=== PATIENT | female | born 1985 | race American Indian/Alaskan Native ===

== ENCOUNTER 2016-10-08 13:24 | Emergency (ER) | payer OTHER ==
[2016-10-08 16:01] LABS: Basophils % (Auto) 0.6 % (0.0-1.8); Hematocrit 32.9 % (30.3-42.9); Hemoglobin 10.2 gm/dl (10.1-14.3); Mean Corpuscular HGB Conc 31 % (30-34); Mean Corpuscular Hemoglobin 19 pg (28-32); Mean Corpuscular Volume 63 fl (79-97); Platelet Count 222 K/mm3 (140-440); Red Blood Count 5.26 M/mm3 (3.65-5.03); Red Cell Distribution Width 19.2 % (13.2-15.2); White Blood Count 5.6 K/mm3 (4.5-11.0)
[2016-10-08 16:27] LABS: Alanine Aminotransferase 12 units/L (7-56); Albumin 4.1 g/dL (3.9-5); Albumin/Globulin Ratio 1.3 %; Alkaline Phosphatase 41 units/L (35-129); Anion Gap 17 mmol/L; BUN/Creatinine Ratio 17.77; Bilirubin,Total 0.3 mg/dL (0.1-1.2); Blood Urea Nitrogen 16 mg/dL (7-17); Calcium 8.7 mg/dL (8.4-10.2); Carbon Dioxide 23 mmol/L (22-30); Chloride 101.7 mmol/L (98-107); Glucose 93 mg/dL (65-100); Lipase 32 units/L (13-60); Potassium 3.9 mmol/L (3.6-5.0); Sodium 138 mmol/L (137-145); Total Protein 7.2 g/dL (6.3-8.2)
[2016-10-08 17:06] LABS: Bilirubin,Urine NEG (Negative); Blood,Urine NEG (Negative); Ketones,Urine NEG (Negative); Leukocyte Esterase,Urine SM (Negative); Mucus,Urine FEW /HPF; Nitrite,Urine NEG (Negative); Protein,Urine <15 mg/dL mg/dL (Negative); Urobilinogen,Urine < 2.0 mg/dL (<2.0)
--- NOTE | 2016-10-08 23:25 | Emergency Department Report ---
ED Abdominal Pain HPI - General Chief Complaint: Abdominal Pain Stated Complaint: ABD PAIN Time Seen by Provider: 10/08/16 22:18 Source: patient Mode of arrival: Ambulatory Limitations: No Limitations - History of Present Illness MD Complaint: abdominal pain Onset/Timin -: Gradual, year(s) (history of umbilical hernia) Location: periumbilical Radiation: none Migration to: no migration Severity: mild Severity scale (0 -10): 3 Quality: stabbing Consistency: intermittent Improves With: nothing Worsens With: nothing Associated Symptoms: denies: nausea, vomiting, diarrhea, fever, chills, constipation, dysuria, hematemesis, hematochezia, melena, hematuria, anorexia - Related Data Previous Rx's Medication Instructions Recorded Last Taken Type Lisinopril/Hydrochlorothiazide 1 tab PO QDAY #30 tablet 08/01/15 10/08/16 Rx [Zestoretic 10-12.5 mg] Ibuprofen [Motrin 800 MG tab] 800 mg PO Q8HR PRN #30 tablet 10/08/16 Unknown Rx Allergies Allergy/AdvReac Type Severity Reaction Status Date / Time No Known Allergies Allergy Unverified 08/01/15 17:59 ED Review of Systems ROS: Stated complaint: ABD PAIN Other details as noted in HPI Constitutional: denies: chills, fever Eyes: denies: eye pain, eye discharge, vision change ENT: denies: ear pain, throat pain Respiratory: denies: cough, shortness of breath, wheezing Cardiovascular: denies: chest pain, palpitations Endocrine: no symptoms reported Gastrointestinal: denies: abdominal pain, nausea, diarrhea Genitourinary: denies: urgency, dysuria, discharge Musculoskeletal: denies: back pain, joint swelling, arthralgia Skin: denies: rash, lesions Neurological: denies: headache, weakness, paresthesias Psychiatric: denies: anxiety, depression Hematological/Lymphatic: denies: easy bleeding, easy bruising ED Past Medical Hx - Past Medical History Previous Medical History?: No - Surgical History Past Surgical History?: Yes Additional Surgical History: . tubal ligation - Social History Smoking Status: Never Smoker Substance Use Type: None - Medications Home Medications: Home Medications Medication Instructions Recorded Confirmed Last Taken Type Lisinopril/Hydrochlorothiazide 1 tab PO QDAY #30 tablet 08/01/15 10/08/16 Rx [Zestoretic 10-12.5 mg] Ibuprofen [Motrin 800 MG tab] 800 mg PO Q8HR PRN #30 tablet 10/08/16 Unknown Rx ED Physical Exam - General Limitations: No Limitations General appearance: alert, in no apparent distress - Head Head exam: Present: atraumatic, normocephalic - Eye Eye exam: Present: normal appearance - ENT ENT exam: Present: mucous membranes moist - Neck Neck exam: Present: normal inspection - Respiratory Respiratory exam: Present: normal lung sounds bilaterally. Absent: respiratory distress - Cardiovascular Cardiovascular Exam: Present: regular rate, normal rhythm. Absent: systolic murmur, diastolic murmur, rubs, gallop - GI/Abdominal GI/Abdominal exam: Present: soft, tenderness, normal bowel sounds. Absent: distended, guarding, rebound, rigid - Extremities Exam Extremities exam: Present: normal inspection - Back Exam Back exam: Present: normal inspection - Neurological Exam Neurological exam: Present: alert, oriented X3 - Psychiatric Psychiatric exam: Present: normal affect, normal mood - Skin Skin exam: Present: warm, dry, intact, normal color. Absent: rash ED Course Vital Signs 10/08/16 10/08/16 15:09 22:41 Temperature 98.5 F Pulse Rate 87 Respiratory 18 18 Rate Blood Pressure 150/87 O2 Sat by Pulse 100 100 Oximetry ED Medical Decision Making - Lab Data Result diagrams: 10/08/16 15:42 10/08/16 15:42 - Radiology Data Radiology results: image reviewed - Medical Decision Making Patient doing well, kub negative for any obstruction, labs negative , no evidence of umbilical hernia on exam , will dc and arrange follow up with general surgeon , no need for admission. Critical care attestation.: If time is entered above; I have spent that time in minutes in the direct care of this critically ill patient, excluding procedure time. ED Disposition Clinical Impression: Abdominal pain Disposition: DISCHARGED TO HOME OR SELFCARE Is pt being admited?: No Does the pt Need Aspirin: No Condition: Good Instructions: Abdominal Pain (ED) Prescriptions: Ibuprofen [Motrin 800 MG tab] 800 mg PO Q8HR PRN #30 tablet PRN Reason: Pain Referrals: PRIMARY CARE,MD [Primary Care Provider] - 3-5 Days Forms: Work/School Release Form(ED) Time of Disposition: 23:25
[2016-10-09 00:43] VITALS: BP 145/86
--- NOTE | 2016-10-09 09:48 | XRay Report ---
ABDOMINAL SERIES 2 VIEWS: 10/08/16 13:24:00 CLINICAL: Abdominal pain. FINDINGS: Supine and upright views demonstrate a normal bowel gas pattern with a large volume of stool in the colon. No distended small bowel and no air-fluid levels. No pneumoperitoneum. No mass or suspicious calcifications. Phleboliths in the pelvis. The bones and soft tissues are unremarkable. IMPRESSION: Negative abdomen with abundant stool.
== END 2016-10-09 00:44 | disposition home or self-care (01) ==
LOC: ED 13:24
DX: R10.33 Periumbilical pain (principal); Z98.51 Tubal ligation status
CPT/HCPCS: 36415; 74020; 80053; 81001; 81025; 83690; 85025; 99284

== ENCOUNTER 2018-09-29 07:37 | Emergency (ER) | payer OTHER ==
[2018-09-29 07:47] VITALS: BP 155/77
== END 2018-09-29 09:00 | disposition left against medical advice (07) ==
LOC: ED 07:37
DX: R51 Headache (principal); R07.89 Other chest pain; Z53.21 Procedure and treatment not carried out due to patient leaving prior to being seen by health care provider
CPT/HCPCS: 93005; 93010

== ENCOUNTER 2018-12-29 11:08 | Emergency (ER) | payer OTHER ==
--- NOTE | 2018-12-29 11:54 | Emergency Department Report ---
Blank Doc - Documentation Documentation: Pt here with pain underneath shoulder blade on the left with pain on inspirat ion. This has beiing going on for 2 mos . no h/o blot clots H/o HTN with elevated bp today PE: lungs clear. CV; tacchycardic Labs, XRAY EKG Pt stable and to be seen in ED by proider
[2018-12-29] MEDS ORDERED: IBUPROFEN PO ONE (12:44)
[2018-12-29] MEDS ORDERED: DEPO-Medrol IM ONE (12:44)
--- NOTE | 2018-12-29 12:44 | Emergency Department Report ---
ED Back Pain/Injury HPI - General Chief Complaint: Back Pain/Injury Stated Complaint: BACK PAIN Time Seen by Provider: 12/29/18 11:49 Source: patient Limitations: No Limitations - History of Present Illness Initial Comments: Patient is a pleasant 33-year-old female who comes to the ER today complaining of a several month history of a knot between her scapula. She has spasm of her left trapezius palpable on exam. Patient denies any trauma. 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 She has no systemic symptoms. The pain does get worse with movement. And she feels a knot when she lays on her back. Patient has htn and asthma- and is compliant with her med regimen. She is well-developed well- nourished and has normal vital signs. She is ambulatory, nontoxic and in no acute distress on assessment. MD Complaint: back pain -: Gradual, month(s) Similar Symptoms Previously: Yes Place: home, work Severity: mild Quality: aching Consistency: intermittent Worsens With: movement Associated Symptoms: denies other symptoms. denies: confusion, weakness, chest pain, numbness, difficulty walking, cough, difficulty urinating, diaphoresis, incontinence, fever/chills, constipation, headaches, abdominal pain, loss of appetite, malaise, nausea/vomiting, rash, seizure, shortness of breath, syncope - Related Data Previous Rx's Medication Instructions Recorded Last Taken Type Lisinopril/Hydrochlorothiazide 1 tab PO QDAY #30 tablet 08/01/15 10/08/16 Rx [Zestoretic 10-12.5 mg] Cyclobenzaprine [Flexeril] 10 mg PO TID PRN #10 tablet 12/29/18 Unknown Rx predniSONE [Deltasone] 20 mg PO DAILY #5 tablet 12/29/18 Unknown Rx Allergies Allergy/AdvReac Type Severity Reaction Status Date / Time No Known Allergies Allergy Verified 12/29/18 11:10 ED Review of Systems ROS: Stated complaint: BACK PAIN Other details as noted in HPI Comment: All other systems reviewed and negative Constitutional: denies: chills Eyes: denies: eye pain ENT: denies: ear pain, throat pain Respiratory: denies: cough, orthopnea Musculoskeletal: as per HPI ED Past Medical Hx - Past Medical History Medical history: asthma, hypertension Surgical history: Psychiatric history: no pertinent history LMP comments: other (6-16) Family history: no significant family history ED Back Pain Physical Exam - Exam General: Vital signs noted. No distress. Alert and acting appropriately. WDWN patient in NAD VS per RN flow sheet Alert and oriented to person, place and time. HR 90 on my exam Moves all extremities well. left trap muscle spasm on exam Mood and affect appropriate. Back/Abdomen: No Abdominal Tenderness, No Perithoracic Tenderness, No Perilumbar Tenderness, No Sacroiliac Tenderness, No Flank Tenderness, No Straight Leg Raise Pain Neuro: Yes Normal Sensation, Yes Normal Gait, No Motor Weakness ED Course Vital Signs 12/29/18 11:48 Temperature 98.5 F Pulse Rate 101 H Respiratory 18 Rate Blood Pressure 159/90 O2 Sat by Pulse 100 Oximetry ED Medical Decision Making - EKG Data -: EKG Interpreted by Me EKG shows normal: sinus rhythm Rate: normal - EKG Data When compared to previous EKG there are: no significant change Interpretation: no acute changes, other (NORMAL AXIX AND NORMAL R WAVE PROGRESSION) - Radiology Data Radiology results: report reviewed, image reviewed - Medical Decision Making VSS trap muscle spasm on exam pain worse with movement long discussion with pt about differentials and primarily muscle in nature vs lipoma. But consistency of the knot is muscular. she will go home with flexeril and plan for massage and stretching. If problems persist she will follow up with Dr Nichole. Vital Signs 12/29/18 12/29/18 11:48 13:39 Temperature 98.5 F Pulse Rate 101 H 94 H Respiratory 18 16 Rate Blood Pressure 159/90 Blood Pressure 154/88 [Left] O2 Sat by Pulse 100 100 Oximetry - Differential Diagnosis MUSCULOSKELETAL PAIN/ RIB PAIN Critical care attestation.: If time is entered above; I have spent that time in minutes in the direct care of this critically ill patient, excluding procedure time. ED Disposition Clinical Impression: Trapezius muscle strain Disposition: DC-01 TO HOME OR SELFCARE Is pt being admited?: No Does the pt Need Aspirin: No Condition: Stable Instructions: Muscle Strain (ED) Additional Instructions: STRETCHING APPROPRIATE HYDRATE WELL WITH WATER GOOD BODY [employer]ICS WHEN AT WORK MEDS ORDERED TODAY MASSAGE EVALUATE YOUR RESPONSE TO MEDS AND MESSAGE REGGIE YOU INC YOUR ACTIVITY OVER THE NEXT COUPLE DAYS IF PERSISTS FOLLOW UP WITH DR NICHOLE REFERRAL BELOW Prescriptions: predniSONE [Deltasone] 20 mg PO DAILY #5 tablet Cyclobenzaprine [Flexeril] 10 mg PO TID PRN #10 tablet PRN Reason: Muscle Spasm Referrals: PANKAJ NICHOLE MD [Staff Physician] - 3-5 Days SHUBHAM CHRIS MD [Staff Physician] - 3-5 Days Time of Disposition: 12:47 Physical Exam - Physical Exam Vital Signs: Vital Signs 12/29/18 12/29/18 11:48 13:39 Temperature 98.5 F Pulse Rate 101 H 94 H Respiratory 18 16 Rate Blood Pressure 159/90 Blood Pressure 154/88 [Left] O2 Sat by Pulse 100 100 Oximetry
[2018-12-29 13:40] VITALS: BP 154/88
== END 2018-12-29 13:39 | disposition home or self-care (01) ==
LOC: ED 11:08
DX: S46.912A Strain of unspecified muscle, fascia and tendon at shoulder and upper arm level, left arm, initial encounter (principal); X58.XXXA Exposure to other specified factors, initial encounter; Y93.89 Activity, other specified; Y92.89 Other specified places as the place of occurrence of the external cause; Y99.8 Other external cause status
CPT/HCPCS: 93005; 93010; 96372; 99282; J1040

== ENCOUNTER 2022-01-30 10:21 | Emergency (ER) | payer SELFPAY ==
[2022-01-30 10:42] VITALS: BP 166/99
[2022-01-30 11:53] LABS: Basophils % (Auto) 0.3 % (0.0-1.8); Eosinophils # (Auto) 0.1 K/mm3 (0.0-0.4); Eosinophils % (Auto) 1.7 % (0.0-4.3); Hemoglobin 10.6 gm/dl (10.1-14.3); Lymphocytes # (Auto) 2.1 K/mm3 (1.2-5.4); Lymphocytes % (Auto) 40.7 % (13.4-35.0); Mean Corpuscular HGB Conc 31 % (30-34); Mean Corpuscular Volume 70 fl (79-97); Monocytes # (Auto) 0.4 K/mm3 (0.0-0.8); Monocytes % (Auto) 7.2 % (0.0-7.3); Platelet Count 220 K/mm3 (140-440); Red Blood Count 4.83 M/mm3 (3.65-5.03); Red Cell Distribution Width 16.4 % (13.2-15.2)
[2022-01-30 12:18] LABS: Alanine Aminotransferase 12 units/L (7-56); BUN/Creatinine Ratio 20; Blood Urea Nitrogen 18 mg/dL (7-17); Calcium 8.9 mg/dL (8.4-10.2); Hemolysis Index 3
== END 2022-01-30 19:30 | disposition left against medical advice (07) ==
LOC: ED 10:21
DX: R10.9 Unspecified abdominal pain (principal); Z53.21 Procedure and treatment not carried out due to patient leaving prior to being seen by health care provider
CPT/HCPCS: 36415; 80053; 83690; 85025